=== PATIENT | male | born 1955 | race Caucasian/White ===

== ENCOUNTER → 2017-09-05 | Outpatient (CLI) | payer MEDICAID ==
[~2017-09-05] MED LIST: ATEN100T PO; INSU100I15 SC; INSU100V8 SQ; LISI2.5T PO; MECL25TA4 PO
[2017-09-05 15:28] LABS: ALANINE AMINOTRANSFERASE 36 U/L (12-78); ALBUMIN 3.1 g/dL (3.4-5.0); ANION GAP 6 mmol/L (5-15); CALCIUM 8.6 mg/dL (8.5-10.1); CHLORIDE 106 mmol/L (98-107); CREATININE 1.25 mg/dL (0.7-1.3)
[2017-09-05 15:30] LABS: ALKALINE PHOSPHATASE 103 U/L (45-117); BILIRUBIN,TOTAL 0.6 mg/dL (0.2-1.0); TOTAL PROTEIN 8.4 g/dL (6.4-8.2)
== END | disposition home or self-care (01) ==
LOC: STAR 14:02
PROVIDERS: ATTEND Orthopaedic Surgery
DX: S83.231A Complex tear of medial meniscus, current injury, right knee, initial encounter (principal); X58.XXXA Exposure to other specified factors, initial encounter; Y93.89 Activity, other specified; Y92.89 Other specified places as the place of occurrence of the external cause; Y99.8 Other external cause status
CPT/HCPCS: 36415; 80053; 93005

== ENCOUNTER 2018-07-04 08:59 | Inpatient (IN) | payer MEDICAID ==
[~2018-07-04] VITALS: Ht 182.9 cm; Wt 95.1 kg
[2018-07-04] MEDS ORDERED: ONDANSETRON 2MG/ML, 2ML ONE (09:44)
[2018-07-04] MEDS ORDERED: FAMOTIDINE 20 MG/2 ML ONE (09:45)
[2018-07-04] MEDS ORDERED: ONDANSETRON 2MG/ML, 2ML IVPush ONE (10:00)
[2018-07-04] MEDS ORDERED: FAMOTIDINE 20 MG/2 ML IVP ONE (10:00)
[2018-07-04] MEDS ORDERED: SODIUM CHLORIDE 0.9% 1,000ML IVBOLUS ONE ×2 (10:00→11:30)
[2018-07-04] MEDS ORDERED: SODIUM CHLORIDE FLUSH 10ML SYR IVF ONE (10:00)
[2018-07-04 10:40] LABS: MEAN CORPUSCULAR HEMOGLOBIN 29.1 pg (27.5-34.5); MEAN CORPUSCULAR VOLUME 88.3 fL (81-97); MEAN PLATELET VOLUME 9.9 fL (7.4-10.4); PLATELET COUNT 233 x10^3/uL (130-400); RED BLOOD COUNT 5.35 x10^6/uL (4.38-5.82); RED CELL DISTRIBUTION WIDTH 15.2 % (9.4-14.8)
[2018-07-04 10:45] LABS: ALANINE AMINOTRANSFERASE 30 U/L (12-78); ALBUMIN 2.9 g/dL (3.4-5.0); ANION GAP 9 mmol/L (5-15); CALCIUM 8.2 mg/dL (8.5-10.1); CHLORIDE 105 mmol/L (98-107); CREATININE 2.78 mg/dL (0.7-1.3)
[2018-07-04 10:47] LABS: ALKALINE PHOSPHATASE 99 U/L (45-117); BILIRUBIN,TOTAL 0.7 mg/dL (0.2-1.0); TOTAL PROTEIN 8.6 g/dL (6.4-8.2)
[2018-07-04 11:27] LABS: BASOPHILS # (AUTO) 0.02 x10^3/uL (0-0.1); BASOPHILS % (AUTO) 0 % (0-1); EOSINOPHILS # (AUTO) 0.03 x10^3/uL (0-0.4); EOSINOPHILS % (AUTO) 0 % (1-7); LYMPHOCYTES # (AUTO) 3.16 x10^3/uL (1-3.4); LYMPHOCYTES % (AUTO) 18 % (22-44); MD SCAN; MONOCYTES # (AUTO) 1.48 x10^3/uL (0.2-0.8); MONOCYTES % (AUTO) 8 % (2-9); NEUTROPHILS # (AUTO) 12.82 x10^3/uL (1.8-6.8); NEUTROPHILS % (AUTO) 73 % (42-75)
[2018-07-04] MEDS ORDERED: NS + 20MEQ KCL 1,000 ML IV SCH (12:29)
[2018-07-04] MEDS ORDERED: ONDANSETRON 2MG/ML, 2ML IVPush PRN (12:30)
[2018-07-04] MEDS ORDERED: ACETAMINOPHEN 325 MG TABLET PO PRN (12:30)
[2018-07-04 13:26] VITALS: BP 108/72
[2018-07-04 13:28] LABS: HEMOGLOBIN A1C 8.9 % (4.2-6.3)
[2018-07-04] MEDS: LACTOBACILLUS CHEW TABLET PO SCH ×2 (17:40→20:49)
[2018-07-04] MEDS: HEPARIN 5,000 UNITS/ML, 1ML SQ SCH (17:41)
[2018-07-04] MEDS: INSULIN LISPRO 100 UNITS/ML, PEN SQ-INSULIN SCH ×2 (18:41→20:49)
[2018-07-04 19:01] VITALS: BP 132/76
[2018-07-04 20:47] LABS: CULTURE INDICATED? NO; MICROSCOPIC NOT IND
[2018-07-04] MEDS: OXYcodone IR 5MG TABLET PO PRN (21:40)
[2018-07-04] MEDS: ZOLPIDEM 10MG TABLET PO PRN (22:26)
[2018-07-05 00:43] VITALS: BP 135/83
[2018-07-05] MEDS: HEPARIN 5,000 UNITS/ML, 1ML SQ SCH ×3 (01:58→18:16)
[2018-07-05] MEDS: OXYcodone IR 5MG TABLET PO PRN ×4 (04:49→21:24)
[2018-07-05] MEDS: LACTOBACILLUS CHEW TABLET PO SCH ×4 (04:49→21:23)
[2018-07-05 04:51] LABS: BASOPHILS # (AUTO) 0.05 x10^3/uL (0-0.1); BASOPHILS % (AUTO) 0 % (0-1); EOSINOPHILS % (AUTO) 1 % (1-7); LYMPHOCYTES # (AUTO) 3.16 x10^3/uL (1-3.4); LYMPHOCYTES % (AUTO) 24 % (22-44); MD NO; MEAN CORPUSCULAR HEMOGLOBIN 29.7 pg (27.5-34.5); MEAN CORPUSCULAR HGB CONC 33.8 g/dL (33.2-36.2); MEAN PLATELET VOLUME 9.3 fL (7.4-10.4); MONOCYTES # (AUTO) 1.12 x10^3/uL (0.2-0.8); MONOCYTES % (AUTO) 9 % (2-9); NEUTROPHILS # (AUTO) 8.49 x10^3/uL (1.8-6.8); NEUTROPHILS % (AUTO) 66 % (42-75); PLATELET COUNT 232 x10^3/uL (130-400); RED BLOOD COUNT 4.65 x10^6/uL (4.38-5.82); RED CELL DISTRIBUTION WIDTH 14.8 % (9.4-14.8)
[2018-07-05 05:06] LABS: ANION GAP 11 mmol/L (5-15); CHLORIDE 108 mmol/L (98-107); CREATININE 2.03 mg/dL (0.7-1.3)
[2018-07-05 06:55] VITALS: BP 123/85
[2018-07-05] MEDS: INSULIN LISPRO 100 UNITS/ML, PEN SQ-INSULIN SCH ×3 (08:08→16:40)
[2018-07-05] MEDS: NICOTINE 21 MG/24 HR PATCH.TD24 TD SCH ×2 (08:08→14:07)
[2018-07-05] MEDS: NS + 20MEQ KCL 1,000 ML IV SCH ×2 (11:58→21:25)
[2018-07-05] MEDS ORDERED: MAALOX/HYOSCYAMINE/LIDOCAINE 45 ML BTL PO PRN (12:30)
[2018-07-05] MEDS: MAALOX/HYOSCYAMINE/LIDOCAINE 45 ML BTL PO PRN ×2 (13:02→17:28)
[2018-07-05 13:05] VITALS: BP 118/69
[2018-07-05 13:49] LABS: CLOSTRIDIUM DIFFICILE TOXIN NEGATIVE (Negative); ROTAVIRUS Negative (Negative)
[2018-07-05 13:52] LABS: CLOSTRIDIUM DIFFICILE ANTIGEN POSITIVE
[2018-07-05] MEDS: VANCOMYCIN 50 MG/ML ORAL SUSP PO SCH ×2 (16:40→22:10)
[2018-07-05 18:57] VITALS: BP 126/87
[2018-07-05] MEDS: ZOLPIDEM 10MG TABLET PO PRN (21:24)
[2018-07-05] MEDS: INSULIN GLARGINE 100 UNITS/ML, PEN SQ-INSULIN SCH (21:24)
[2018-07-06 00:35] VITALS: BP 126/74
[2018-07-06] MEDS: OXYcodone IR 5MG TABLET PO PRN ×5 (01:58→20:36)
[2018-07-06] MEDS: HEPARIN 5,000 UNITS/ML, 1ML SQ SCH ×3 (02:00→16:33)
[2018-07-06] MEDS: LACTOBACILLUS CHEW TABLET PO SCH ×4 (05:09→20:36)
[2018-07-06] MEDS: VANCOMYCIN 50 MG/ML ORAL SUSP PO SCH ×4 (05:09→22:39)
[2018-07-06] MEDS: NS + 20MEQ KCL 1,000 ML IV SCH ×3 (05:45→20:29)
[2018-07-06] MEDS: MAALOX/HYOSCYAMINE/LIDOCAINE 45 ML BTL PO PRN (05:45)
[2018-07-06 06:12] LABS: ALBUMIN 2.8 g/dL (3.4-5.0); ANION GAP 8 mmol/L (5-15); CALCIUM 7.8 mg/dL (8.5-10.1); CHLORIDE 110 mmol/L (98-107)
[2018-07-06 06:15] LABS: ALANINE AMINOTRANSFERASE 24 U/L (12-78); ALKALINE PHOSPHATASE 84 U/L (45-117); BILIRUBIN,TOTAL 1.1 mg/dL (0.2-1.0); CREATININE 1.32 mg/dL (0.7-1.3); TOTAL PROTEIN 7.5 g/dL (6.4-8.2)
[2018-07-06 07:45] VITALS: BP 139/84
[2018-07-06] MEDS: NICOTINE 21 MG/24 HR PATCH.TD24 TD SCH (10:02)
[2018-07-06] MEDS ORDERED: DIPHENHYDRAMINE 50 MG CAPSULE PO ONE (10:30)
[2018-07-06] MEDS ORDERED: DIPHENHYDRAMINE 50 MG CAPSULE PO PRN (13:30)
[2018-07-06 13:38] VITALS: BP 127/80
[2018-07-06 19:47] VITALS: BP 145/76
[2018-07-06] MEDS: INSULIN GLARGINE 100 UNITS/ML, PEN SQ-INSULIN SCH (20:35)
[2018-07-07 01:06] VITALS: BP 135/64
[2018-07-07] MEDS: HEPARIN 5,000 UNITS/ML, 1ML SQ SCH (02:14)
[2018-07-07] MEDS: NS + 20MEQ KCL 1,000 ML IV SCH (02:15)
[2018-07-07] MEDS: OXYcodone IR 5MG TABLET PO PRN (04:43)
[2018-07-07] MEDS: VANCOMYCIN 50 MG/ML ORAL SUSP PO SCH (04:43)
[2018-07-07] MEDS: MAALOX/HYOSCYAMINE/LIDOCAINE 45 ML BTL PO PRN (04:51)
[2018-07-07] MEDS: LACTOBACILLUS CHEW TABLET PO SCH (04:53)
[2018-07-07 05:45] LABS: CHLORIDE 105 mmol/L (98-107)
[2018-07-07 05:53] LABS: ALANINE AMINOTRANSFERASE 26 U/L (12-78); ALBUMIN 3.1 g/dL (3.4-5.0); ALKALINE PHOSPHATASE 91 U/L (45-117); ANION GAP 8 mmol/L (5-15); BILIRUBIN,TOTAL 1.2 mg/dL (0.2-1.0); CALCIUM 8.4 mg/dL (8.5-10.1); CREATININE 1.36 mg/dL (0.7-1.3); TOTAL PROTEIN 8.1 g/dL (6.4-8.2)
[2018-07-07 07:46] VITALS: BP 144/99
[2018-07-07] MEDS ORDERED: POTASSIUM PHOSPHATE 44 MEQ in SODIUM CHLORIDE 0.9% 500 ML IV SCH (09:00)
[2018-07-07] MEDS ORDERED: MAGNESIUM SULFATE 1 GM in SODIUM CHLORIDE 0.9% 50 ML IV ONE (09:00)
== END 2018-07-07 09:12 | disposition left against medical advice (07) | DRG 371 ==
LOC: ED 10:20 → EDIP 12:29 → 3NE 13:18
PROVIDERS: ADMIT Internal Medicine; ATTEND Internal Medicine
DX: A04.72 Enterocolitis due to Clostridium difficile, not specified as recurrent (principal); N17.0 Acute kidney failure with tubular necrosis; E11.9 Type 2 diabetes mellitus without complications; E66.9 Obesity, unspecified; E83.39 Other disorders of phosphorus metabolism; E86.0 Dehydration; E87.6 Hypokalemia; F17.210 Nicotine dependence, cigarettes, uncomplicated; G47.00 Insomnia, unspecified; I10 Essential (primary) hypertension; K44.9 Diaphragmatic hernia without obstruction or gangrene; Z53.21 Procedure and treatment not carried out due to patient leaving prior to being seen by health care provider; K70.30 Alcoholic cirrhosis of liver without ascites; B96.89 Other specified bacterial agents as the cause of diseases classified elsewhere; N20.0 Calculus of kidney; Z71.6 Tobacco abuse counseling; Z88.8 Allergy status to other drugs, medicaments and biological substances; Z79.899 Other long term (current) drug therapy; Z79.4 Long term (current) use of insulin; Z71.3 Dietary counseling and surveillance
CPT/HCPCS: 36415; 74021; 99285; J3370; J3490; 74176; 80048; 80053; 81003; 82962; 83036; 83690; 83735; 84100; 85025; 86759; 87324; 87493; 90656; 96361; 96374; 96375; G0378; J1644; J2405; J3480; J1815; J7030